=== PATIENT | male | born 1985 | race Asian ===

== ENCOUNTER → 2017-04-15 | Outpatient (CLI) | payer OTHER | END | disposition home or self-care (01) | LOC: RADPV 10:38 | PROVIDERS: ATTEND Internal Medicine | DX: R76.11 Nonspecific reaction to tuberculin skin test without active tuberculosis (principal) ==

== ENCOUNTER 2017-08-26 22:00 | Emergency (ER) | payer OTHER ==
[~2017-08-26] VITALS: Ht 177.8 cm; Wt 137.7 kg
[2017-08-26] MEDS ORDERED: DSS100 PO (22:07)
[2017-08-26] MEDS ORDERED: LOSA50TA37 PO (22:07)
[2017-08-26] MEDS ORDERED: LIDOCAINE HCL 1% 10 ML VIAL INJ ONE (23:00)
[2017-08-26] MEDS ORDERED: OxyCODONE HCL/ACETAMINOPHEN 5-325 MG TABLET PO ONE (23:30)
[2017-08-27 00:17] VITALS: BP 122/81
== END 2017-08-27 00:34 | disposition home or self-care (01) ==
LOC: EMS 22:04
DX: L02.31 Cutaneous abscess of buttock (principal); J45.909 Unspecified asthma, uncomplicated
CPT/HCPCS: 10060; 99283; J3490

== ENCOUNTER 2018-05-21 05:23 | Emergency (ER) | payer OTHER ==
[~2018-05-21] VITALS: Ht 177.8 cm; Wt 145.0 kg
[~2018-05-21 05:23] MED LIST: DSS100 PO; LOSA50TA37 PO
[2018-05-21 05:55] VITALS: BP 121/79
== END 2018-05-21 06:08 | disposition home or self-care (01) ==
LOC: EMS 05:24
DX: M79.641 Pain in right hand (principal); M79.644 Pain in right finger(s); J45.909 Unspecified asthma, uncomplicated; Z79.899 Other long term (current) drug therapy
CPT/HCPCS: 29280; 99283